=== PATIENT | female | born 1940 | race Two or more races ===

== ENCOUNTER 2021-02-28 05:37 | Day surgery (SDC) | payer OTHER ==
[~2021-02-28 05:37] MED LIST: COZAAR25 MG PO; CRESTOR5 MG PO; SYNTHROID75 MCG PO
== END 2021-02-28 11:10 | disposition home or self-care (01) ==
LOC: CIR.AMB 05:37
PROVIDERS: ATTEND Urology
DX: N20.1 Calculus of ureter (principal); Z20.822 Contact with and (suspected) exposure to COVID-19

== ENCOUNTER 2021-03-14 09:21 | Day surgery (SDC) | payer OTHER | END 2021-03-14 15:00 | disposition home or self-care (01) | LOC: CIR.AMB 09:21 | PROVIDERS: ATTEND Urology | DX: N20.0 Calculus of kidney (principal); Z20.822 Contact with and (suspected) exposure to COVID-19 ==

== ENCOUNTER 2021-03-19 08:55 | Outpatient (CLI) | payer OTHER | END 2021-03-19 09:02 | disposition home or self-care (01) | LOC: RAD 08:55 | PROVIDERS: ATTEND Urology | DX: N20.0 Calculus of kidney (principal) ==